=== PATIENT | female | born 1985 ===

== ENCOUNTER 2017-07-27 06:58 | Emergency (ER) | payer MEDICAID ==
[2017-07-27] MEDS ORDERED: Lactated Ringer's 1,000 ML IV SCH (07:45)
--- NOTE | 2017-07-27 07:55 | OBHP ---
Datetime: 07/27/2017 07:51 IP Adm Impression: , intrauterine Admit Comment, IP Provider: at 32+weeks came with c/o cramping staryed from few days and got wo rse in the am. c/o dysuria, no vb, lf,+fm.pt had sex last nigh obhx 2 x pmh den med pnv all nkda psh dn soch den ve closed a/p at 32weeks ctxs r/o uti npo/ivf ua cont maxwell and efm cont close observation Pelvic Type - PN: Adequate Extremities - PN: Normal Abdomen - PN: Normal Back - PN: Normal Breast - PN: Not Done Lungs - PN: Normal Heart - PN: Normal Thyroid - PN: Not Done Neurologic - PN: Normal HEENT - PN: Normal General - PN: Normal FHR - Baseline A Provider: 130 Contraction Comments Provider: q1-4 Comments, ACOG Physical Exam: gravid,non tender ext no edema,no calf ten IP Hx Assessment: The History has been Reviewed and is Current EGA AdmitDate IP: 32.6 Vital Signs Provider: Reviewed; Within Normal Limits IP Chief Complaint: Uterine contractions NICHD Variability Prov Fetus A: Moderate 6-25bpm NICHD Accel Fetus A IP Provider: [id number] FHR Category Provider Fetus A: Category I NICHD Decel Fetus A IP Provider: None Dilatation, Provider: 0 Effacement, Provider: 0 Station, Provider: -3 Genitourinary Exam: Normal DTRs - PN: Normal
[2017-07-27 08:24] LABS: RBC URINE 12 /hpf (0-3); URINE BACTERIA RARE (<OCC); URINE BILIRUBIN NEGATIVE (NEGATIVE); URINE BLOOD 2+ (NEGATIVE); URINE COLOR Yellow (YELLOW); URINE GLUCOSE (UA) NORMAL (Normal); URINE KETONE NEGATIVE (NEGATIVE); URINE LEUKOCYTE ESTERASE 3+ Leu/uL (Negative); URINE PROTEIN NEGATIVE (NEGATIVE); URINE UROBILINOGEN NORMAL mg/dL (0.2-1.0); WBC URINE 31 /hpf (0-5)
--- NOTE | 2017-07-27 09:21 | OBDCSUM ---
Datetime: 07/27/2017 09:19 Discharged to, Provider: Home Follow up at, Provider: 1 days Follow up in weeks, Provider: clinic Disch Activity Restrictions: No sexual activity; Nothing in vagina - [place], tampons, douche Discharge Comment, Provider: ptl given macrobid no sex f/u in clinic in 1 day Discharge Diagnosis Prov Other: 32weks ctxs ut nst
--- NOTE | 2017-07-27 09:21 | OBHP ---
Datetime: 07/27/2017 09:17 Admit Comment, IP Provider: pt was seen at bed side feels better. ve closed s/p fluids and terb ua 3 =le plan dc home ptl given macrobid no sex f/u in clinic in 1 day FHR - Baseline A Provider: 120 Contraction Comments Provider: none Vital Signs Provider: Reviewed; Within Normal Limits NICHD Variability Prov Fetus A: Moderate 6-25bpm NICHD Accel Fetus A IP Provider: [id number] FHR Category Provider Fetus A: Category I Dilatation, Provider: 0 Effacement, Provider: 0 Station, Provider: -3 Datetime: 07/27/2017 07:51 EGA AdmitDate IP: 32.6
[2017-07-28 14:55] VITALS: BP 111/59; PULSE 81; O2SAT 99
== END 2017-07-27 09:27 | disposition home or self-care (01) ==
LOC: C.EROB 06:58
DX: O60.03 Preterm labor without delivery, third trimester (principal); Z3A.32 32 weeks gestation of pregnancy
CPT/HCPCS: 81001; 99283; J3105; J7120